=== PATIENT | female | born 1940 | race Caucasian/White ===

== ENCOUNTER 2017-04-30 15:01 | Observation (INO) | payer OTHER ==
[~2017-04-30 15:01] MED LIST: AMLO2.5T PO; HYDR-3516 PO; IBUP1TAB5 PO; LISI-515 PO; METF500T PO
[2017-04-30 17:49] VITALS: BP 119/69; PULSE 47; RESP 16; TEMP 98.5; O2SAT 98
[2017-04-30] MEDS ORDERED: NALOXONE HCL 0.4 MG/ML AMP IV PUSH PRN (18:00)
[2017-04-30] MEDS ORDERED: SODIUM CHLORIDE 0.9% FLUSH 10 ML FLUSH IV FLUSH PRN (18:00)
[2017-04-30] MEDS ORDERED: ALEN1TAB48 PO (18:20)
[2017-04-30] MEDS ORDERED: GALA8TAB PO (18:20)
[2017-04-30] MEDS ORDERED: GABA300C5 PO (18:20)
--- NOTE | 2017-04-30 19:43 | HHI.HP ---
[facility]Staff Admission Diagnosis Diagnoses: History of Present Illness was visiting daughter at work and all of a sudden had abdominal pain pointed to LUQ area and not going away and thus family brought her to hospital now pain is episodic pain is reproducible no nauea. no vomiting no prior pains in previous days now c/o headaches after arriving to ER she was given nitropaste in ER and is still wearing it also c/o left flank pain no hx of kidney stones denies urine burning or pain, but has been urinating frequently and more in quantity no other symptoms Review of Systems Except as stated in HPI: all other systems reviewed are Neg Past Family Social History Past Medical History htn dm cad- s/p coronary angiogram was advised ppm before but pt refused dementia Past Surgical History coronary angiogram appendectomy Allergies: Coded Allergies: No Known Allergies (Unverified Allergy, Unknown, 04/30/17) Family History all her sisters has heart, dm, dementia, osteoporosis her mother of tuberculosis. pt herself was treated with prophylaxis medicine Social History no smoking/ etoh/ drugs Physical Exam Vital Signs Vital Signs Date Time Temp Pulse Resp B/P (MAP) Pulse Ox O2 Delivery O2 Flow Rate FiO2 04/30/17 17:49 98.5 47 16 119/69 (86) 98 Physical Exam GENERAL: This is a well-nourished, well-developed patient, in no apparent distress. SKIN: No rashes, ecchymoses or lesions. Cool and dry. HEAD: Atraumatic. Normocephalic. No temporal or scalp tenderness. EYES: Pupils equal round and reactive. Extraocular motions intact. No scleral icterus. No injection or drainage. ENT: Nose without bleeding, purulent drainage or septal hematoma. Throat without erythema, tonsillar hypertrophy or exudate. Uvula midline. Airway patent. NECK: Trachea midline. No JVD or lymphadenopathy. Supple, nontender, no meningeal signs. CARDIOVASCULAR: Regular rate and rhythm without murmurs, gallops, or rubs. RESPIRATORY: Clear to auscultation. Breath sounds equal bilaterally. No wheezes , rales, or rhonchi. GASTROINTESTINAL: Abdomen soft, non-tender, nondistended. No hepato-splenomegaly , or palpable masses. No guarding. MUSCULOSKELETAL: Extremities without clubbing, cyanosis, or edema. No joint tenderness, effusion, or edema noted. No calf tenderness. Negative Homans sign bilaterally. NEUROLOGICAL: Awake and alert. Cranial nerves II through XII intact. Motor and sensory grossly within normal limits. Five out of 5 muscle strength in all muscle groups. Normal speech. Caprini VTE Risk Assessment Caprini Risk Assessment Model Point Value = 1 Point Value = 2 Point Value = 3 Point Value = 5 Age 41-60 Minor surgery BMI > 25 kg/m2 Swollen legs Varicose veins or History of unexplained or recurrent spontaneous Oral contraceptives or hormone replacement Sepsis (< 1 month) Serious lung disease, including pneumonia (< 1 month) Abnormal pulmonary function Acute myocardial infarction Congestive heart failure (< 1 month) History of inflammatory bowel disease Medical patient at bed rest Age 61-74 Arthroscopic surgery Major open surgery (> 45 min) Laparoscopic surgery (> 45 min) Malignancy Confined to bed (> 72 hours) Immobilizing plaster cast Central venous access Age >= 75 History of VTE Family history of VTE Factor V Leiden Prothrombin [id number] Lupus anticoagulant Anticardiolipin antibodies Elevated serum homocysteine Heparin-induced thrombocytopenia Other congenital or acquired thrombophilia Stroke (< 1 month) Elective arthroplasty Hip, pelvis, or leg fracture Acute spinal cord injury (< 1 month) Prophylaxis Regimen Total Risk Factor Score Risk Level Prophylaxis Regimen 0-1 Low Early ambulation 2 Moderate Order ONE of the following: *Sequential Compression Device (SCD) *Heparin 5000 units SQ BID 3-4 Higher Order ONE of the following medications: *Heparin 5000 units SQ TID *Enoxaparin/Lovenox 40 mg SQ daily (WT < 150 kg, CrCl > 30 mL/min) *Enoxaparin/Lovenox 30 mg SQ daily (WT < 150 kg, CrCl > 10-29 mL/min) *Enoxaparin/Lovenox 30 mg SQ BID (WT < 150 kg, CrCl > 30 mL/min) AND/OR *Sequential Compression Device (SCD) 5 or more Highest Order ONE of the following medications: *Heparin 5000 units SQ TID (Preferred with Epidurals) *Enoxaparin/Lovenox 40 mg SQ daily (WT < 150 kg, CrCl > 30 mL/min) *Enoxaparin/Lovenox 30 mg SQ daily (WT < 150 kg, CrCl > 10-29 mL/min) *Enoxaparin/Lovenox 30 mg SQ BID (WT < 150 kg, CrCl > 30 mL/min) AND *Sequential Compression Device (SCD) Assessment and Plan Assessment and Plan left upper quadrant abdominal pain left flank pain headaches due to ntg htn cad d/c ntg pain control with toradol ct abdomen and pelvis without iv since pt got iv today at [place] abdominal US resume home meds hold fosamax hold metformin dvt prophyalxis with lovenox Binta Addison MD Apr 30, 2017 19:43
[2017-04-30] MEDS ORDERED: KETOROLAC TROMETHAMINE 30 MG/ML (IVP) VIAL IV PUSH PRN (19:45)
[2017-04-30] MEDS ORDERED: DEXT 5%-NACL 0.45% 1000 ML INJ 1,000 ML IV SCH (19:45)
[2017-04-30] MEDS ORDERED: DIATRIZOATE MEGLUM/DIATRIZOATE SOD 9 ML CUP PO ONE (19:52)
[2017-04-30] MEDS: GALANTAMINE HYDROBROMIDE 4 MG TAB PO SCH (20:46)
[2017-04-30] MEDS: SODIUM CHLORIDE 0.9% FLUSH 10 ML FLUSH IV FLUSH SCH (20:54)
[2017-04-30] MEDS ORDERED: GABAPENTIN 300 MG CAP PO SCH (21:00)
--- NOTE | 2017-04-30 21:39 | RADRPT ---
EXAM DATE/TIME: 04/30/2017 20:06 [facility] COMPARISON: No previous studies available for comparison. INDICATIONS : Abdominal pain. MEDICAL HISTORY : Hypertension. Diabetes. Coronary artery disease. SURGICAL HISTORY : Appendectomy. Oophorectomy. Cardiac catheterization. ENCOUNTER: Initial ACUITY: 1 day PAIN SCORE: 1/10 LOCATION: Bilateral upper quadrant MEASUREMENTS: LIVER: 12.0 cm length COMMON DUCT: 5 mm RIGHT KIDNEY: 10.1 x 4.2 x 4.3 cm LEFT KIDNEY: 10.6 x 5.2 x 5.6 cm SPLEEN: 7.4 cm length AORTA: 2.4cm maximal FINDINGS: LIVER: Homogeneous increased echotexture throughout the liver. No focal lesions. Hepatopedal flow is seen in the portal vein. COMMON DUCT: No intraluminal mass or stone visualized. GALLBLADDER: The gallbladder is contracted. No echogenic or shadowing stones. PANCREAS: Not well seen. RIGHT KIDNEY: No hydronephrosis, stone or mass. LEFT KIDNEY: No hydronephrosis, stone or mass. SPLEEN: No focal lesion. AORTA: Non aneurysmal. IVC: Within normal limits. CONCLUSION: 1. Homogeneous increased echotexture in the liver without focal lesion. 2. Contracted gallbladder without shadowing stones. William Mcnulty MD on April 30, 2017 at 21:34 Board Certified Radiologist. This report was verified electronically.
[2017-04-30 22:40] VITALS: BP 120/75; PULSE 55; RESP 20; TEMP 98; O2SAT 98
--- NOTE | 2017-04-30 23:29 | RADRPT ---
EXAM DATE/TIME: 04/30/2017 23:07 [facility] COMPARISON: No previous studies available for comparison. INDICATIONS : Abdomen pain. ORAL CONTRAST: Prescribed oral contrast ingested. RADIATION DOSE: 4.72 CTDIvol (mGy) MEDICAL HISTORY : Cardiovascular disease. Hypertension. SURGICAL HISTORY : Appendectomy. ENCOUNTER: Initial ACUITY: 1 day PAIN SCALE: 7/10 LOCATION: abdomen TECHNIQUE: Volumetric scanning of the abdomen and pelvis was performed. Using automated exposure control and ad justment of the mA and/or kV according to patient size, radiation dose was kept as low as reasonably achievable to obtain optimal diagnostic quality images. DICOM format image data is available electro nically for review and comparison. FINDINGS: LOWER LUNGS: The visualized lower lungs are clear. LIVER: Homogeneous density without lesion for noncontrast technique. There is no dilation of the biliary tr ee. No calcified gallstones. SPLEEN: Normal size without lesion. PANCREAS: Within normal limits. KIDNEYS: Normal in size and shape. There is no mass, stone, or hydronephrosis. ADRENAL GLANDS: Within normal limits. VASCULAR: There is no aortic aneurysm. BOWEL/MESENTERY: No dilated loops of small or large bowel. Oral contrast passes through to the splenic flexure. ABDOMINAL WALL: Within normal limits. RETROPERITONEUM: There is no lymphadenopathy. BLADDER: Mildly distended with smooth margins. REPRODUCTIVE: Anteverted uterus. No evidence of free fluid. INGUINAL: There is no lymphadenopathy or hernia. MUSCULOSKELETAL: Within normal limits for patient age. CONCLUSION: 1. Negative noncontrast CT abdomen/pelvis. William Mcnulty MD on April 30, 2017 at 23:24 Board Certified Radiologist. This report was verified electronically.
[2017-05-01 00:13] VITALS: BP 147/71; PULSE 60; RESP 18; TEMP 98; O2SAT 95
[2017-05-01 04:07] VITALS: BP 162/76; PULSE 50; RESP 18; TEMP 97.7; O2SAT 98
[2017-05-01 05:28] LABS: AUTOMATED NEUTROPHIL # 3.6 TH/MM3 (1.8-7.7); BASOPHIL % 0.6 % (0.0-2.0); EOSINOPHIL # 0.2 TH/MM3 (0-0.4); EOSINOPHIL % 2.4 % (0.0-4.0); HEMATOCRIT 35.1 % (35.0-46.0); HEMO FLAGS DIFF FINAL; LYMPH % 36.7 % (9.0-44.0); LYMPHOCYTE # 2.5 TH/MM3 (1.0-4.8); MEAN CELL VOLUME 87.5 FL (80.0-100.0); MEAN CORPUSCULAR HEMOGLOBIN 29.8 PG (27.0-34.0); MEAN CORPUSCULAR HGB CONC 34.1 % (32.0-36.0); MONO % 7.3 % (0.0-8.0); PLATELET COUNT 250 TH/MM3 (150-450); RED BLOOD COUNT 4.01 MIL/MM3 (4.00-5.30); RED CELL DISTRIBUTION WIDTH 13.3 % (11.6-17.2); WHITE BLOOD COUNT 6.7 TH/MM3 (4.0-11.0)
[2017-05-01 05:55] LABS: BICARBONATE 27.7 MEQ/L (21.0-32.0); POTASSIUM 3.8 MEQ/L (3.5-5.1)
[2017-05-01 08:03] VITALS: PULSE 47
[2017-05-01 08:17] VITALS: BP 159/72; PULSE 50; RESP 18; TEMP 97.8; O2SAT 96
[2017-05-01] MEDS: SODIUM CHLORIDE 0.9% FLUSH 10 ML FLUSH IV FLUSH SCH (08:41)
[2017-05-01] MEDS: GALANTAMINE HYDROBROMIDE 4 MG TAB PO SCH (08:41)
[2017-05-01] MEDS ORDERED: LISINOPRIL 20 MG TAB PO SCH (09:00)
[2017-05-01] MEDS ORDERED: amLODIPine BESYLATE 5 MG TAB PO SCH (09:00)
[2017-05-01] MEDS ORDERED: DEXTROSE 50% IN WATER 50 ML VIAL(D50) IV PUSH PRN (11:30)
[2017-05-01] MEDS ORDERED: GLUCAGON 1 MG/ML VIAL OTHER PRN (11:30)
--- NOTE | 2017-05-01 11:56 | HHI.PR ---
Subjective Remarks Follow-up on patient with chest pain. Patient seen and examined. Daughters at the bedside. Offered to use hospitals translation service however patient declined and requested to use daughter as commercial front load driver. Patient is currently chest pain-free. She does have a family history of coronary artery disease having had a sister with previous CABG. She states she developed sudden onset of sharp left-sided chest pain underneath the left breast while at rest without any associated symptoms. She is unsure if it worsened with activity but does state it ways exacerbated with deep inspiration. She did get relief after administration of aspirin and nitroglycerin in the ED at [place]. She is currently chest pain-free. She has no other acute medical complaints at this time. She did have a heart catheterization 4 years ago with patent arteries but is unable to recall if her symptoms yesterday were the same as 4 yrs ago leading to the catheterization. She states her diabetes is well controlled at home with BS in the 120-130s. Objective Vitals Vital Signs Date Time Temp Pulse Resp B/P (MAP) Pulse Ox O2 Delivery O2 Flow Rate FiO2 05/01/17 08:17 97.8 50 18 159/72 (101) 96 05/01/17 08:03 47 05/01/17 04:07 97.7 50 18 162/76 (104) 98 05/01/17 00:13 98.0 60 18 147/71 (96) 95 04/30/17 22:40 98.0 55 20 120/75 (90) 98 04/30/17 21:00 18 04/30/17 17:49 98.5 47 16 119/69 (86) 98 I/O 04/30/17 04/30/17 04/30/17 05/01/17 05/01/17 05/01/17 07:00 15:00 23:00 07:00 15:00 23:00 Intake Total 400 ml Balance 400 ml Intake Oral 400 ml # Voids 3 Result Diagram: 05/01/17 0503 05/01/17 0503 Imaging Last Impressions Abdomen/Pelvis CT 04/30/17 0000 Signed Impressions: Service Date/Time: Sunday, April 30, 2017 23:07 - CONCLUSION: 1. Negative noncontrast CT abdomen/pelvis. William Mcnulty MD Abdomen Ultrasound 04/30/17 0000 Signed Impressions: Service Date/Time: Sunday, April 30, 2017 20:06 - CONCLUSION: 1. Homogeneous increased echotexture in the liver without focal lesion. 2. Contracted gallbladder without shadowing stones. William Mcnulty MD Objective Remarks GENERAL: Well-nourished, well-developed elderly Wolof speaking female patient in NAD. Awake and alert, daughter at the bedside. Patient appears comfortable. SKIN: Warm and dry. No rash. HEAD: Normocephalic. Atraumatic. EYES: EOMI. No scleral icterus. No injection or drainage. ENT: No nasal bleeding or discharge. Mucous membranes pink and moist. NECK: Supple. Trachea midline. CARDIOVASCULAR: Regular rate and rhythm. S1, S2 noted. No murmur appreciated. RESPIRATORY: Nonlabored. Clear to auscultation. Breath sounds equal bilaterally. GASTROINTESTINAL: Abdomen soft, non-tender, nondistended. Normoactive bowel sounds x4. MUSCULOSKELETAL: No obvious deformities. Extremities without clubbing, cyanosis , or edema. Chest pain not reproducible. NEUROLOGICAL: Awake and alert. Able to move all extremities spontaneously. No focal neurologic findings appreciated. Normal speech. PSYCHIATRIC: Appropriate mood and affect; insight and judgment normal. Medications and IVs Current Medications Medications (Trade) Dose Ordered Sig/Yosef Route Start Time Stop Time Status Last Admin (NS Flush) 2 ml UNSCH PRN IV FLUSH 04/30/17 18:00 (NS Flush) 2 ml BID IV FLUSH 04/30/17 21:00 (Narcan Inj) 0.4 mg UNSCH PRN IV PUSH 04/30/17 18:00 (Toradol Inj) 30 mg Q6H PRN IV PUSH 04/30/17 19:45 05/04/17 19:44 04/30/17 20:28 (Norvasc) 2.5 mg DAILY PO 05/01/17 09:00 05/01/17 08:40 (Neurontin) 300 mg HS PO 04/30/17 21:00 04/30/17 20:46 (Razadyne) 8 mg BID PO 04/30/17 21:00 05/01/17 08:41 (Prinivil) 20 mg DAILY PO 05/01/17 09:00 05/01/17 08:41 Dextrose/Sodium Chloride 1,000 ml @ 42 mls/hr [id number] IV 04/30/17 19:45 04/30/17 19:45 (D50w (Vial) Inj) 50 ml UNSCH PRN IV PUSH 05/01/17 11:30 (Glucagon Inj) 1 mg UNSCH PRN OTHER 05/01/17 11:30 (NovoLOG SUPPLEMENTAL SCALE) 1 ACHS SLIDING SCALE SQ 05/01/17 12:00 A/P Assessment and Plan Chest pain, r/o ACS - Patient is currently chest pain-free - US and CT abdominal studies unremarkable, images personally reviewed - Troponin 0.06, 0.08, 0.07 - Consult cardiology, appreciate recommendation. She is scheduled for myocardial perfusion scan. - Nitroglycerin when necessary chest pain - LDL 130. Patient started on Lipitor. - ASA 81mg daily - supplemental oxygen as needed Hypertension - controlled - Continue patient on home dose of lisinopril 20 mg daily and Norvasc 2.5 mg daily Bradycardia - asymptomatic - stable - continue to monitor DM - Metformin on hold - ISS - accucheck - HgbA1c 6.7 Diabetic neuropathy - continue patient on home dose of gabapentin 300 mg at night Dementia - Continue patient on home dose of Galantamine 8mg BID DVT prophylaxis - Bilateral SCD/FE hose MPS revealing EF >70%, low risk study. Patient cleared for discharge from cardiology standpoint. Discharge patient to home Condition on discharge: Improved Heart healthy diabetic diet as tolerated Ad Allyssa activity Rx written: Lipitor 10mg daily, Aspirin 81mg daily Follow-up with primary care physician and supervisor treating and pumping Vivi Cordon May 01, 2017 11:56
[2017-05-01] MEDS ORDERED: INSULIN ASPART SUPPLEMENTAL SCALE SQ SCH (12:00)
[2017-05-01 12:09] VITALS: BP 147/72; PULSE 50; RESP 18; TEMP 97.9; O2SAT 97
[2017-05-01 13:05] VITALS: PULSE 53
[2017-05-01 13:16] LABS: HDL CHOLESTEROL 51.7 MG/DL (40.0-60.0); LDL CHOLESTEROL 130 MG/DL (0-99)
[2017-05-01 14:00] LABS: HEMOGLOBIN A1a 1.7 %; HEMOGLOBIN A1b 1.8 %; HEMOGLOBIN Ao 82.7 %; HEMOGLOBIN LA1C 2.9 %; HEMOGLOBIN P3 3.8 %
[2017-05-01] MEDS ORDERED: REGADENOSON INJ 0.4 MG/5 ML SYR ONE (15:21)
--- NOTE | 2017-05-01 16:32 | RADRPT ---
EXAM DATE/TIME: 05/01/2017 15:15 [facility] COMPARISON: No previous studies available for comparison. INDICATIONS : Chest pain. Angina. DOSE: 25.4 mCi Tc99m Myoview at stress. 8.5 mCi Tc99m Myoview at rest. 0.4 mg Lexiscan STRESS SYMPTOMS: Shortness of breath, chest pressure, stomach pressure. EJECTION FRACTION: > 70% MEDICAL HISTORY : Hypertension. SURGICAL HISTORY : Cardiac cath. ENCOUNTER: Initial ACUITY: 1 day PAIN SCALE: 3/10 LOCATION: Bilateral chest TECHNIQUE: The patient underwent pharmacologic stress with infusion of prescribed dose. Continuous ECG tracing was monitored during stress. Gated SPECT imaging was performed after stress and conventional SPECT i maging was performed at rest. The examination was performed on a SPECT/CT scanner, both attenuation and non-corrected datasets were reviewed. FINDINGS: DISTRIBUTION: The maximum perfused segment at stress is in the <anterolateral> wall. PERFUSION STUDY: The pattern of perfusion at stress is within normal limits. GATED STUDY: There is intact wall motion and thickening without hypokinetic or dyskinetic segments. CONCLUSION: Normal examination. RISK CATEGORY: Low (<1% Annual Mortality Rate) Rashard Smyth MD on May 01, 2017 at 16:29 Board Certified Radiologist. This report was verified electronically.
[2017-05-01] MEDS ORDERED: ECASA81 PO (17:52)
[2017-05-01] MEDS ORDERED: LIPI10TA PO (17:52)
--- NOTE | 2017-05-01 18:01 | HHI.DCPOC ---
Discharge Care Plan Diagnosis: (1) Chest pain (2) Diabetes (3) Dementia (4) Dyslipidemia Goals to Promote Your Health * To prevent worsening of your condition and complications * To maintain your health at the optimal level Directions to Meet Your Goals You been started on a statin therapy for elevated cholesterol level. You will need to have your liver functions tested in 6-8 weeks after initiation of statin therapy. These follow-up with primary care physician and director meetings as outpatient. Take your medications as prescribed Follow your dietary instruction Follow activity as directed Keep your appointments as scheduled Take your immunizations and boosters as scheduled If your symptoms worsen call your PCP, if no PCP go to Urgent Care Center or Emergency Room Smoking is Dangerous to Your Health. Avoid second hand smoke Call the 24-hour hour crisis hotline for domestic abuse at Vivi Cordon May 01, 2017 18:01
--- NOTE | 2017-05-01 19:48 | MB ---
cc: ROWDY SOTO MD DATE OF CONSULTATION 05/01/17 REASON FOR CONSULTATION Atypical chest pain with elevated troponin HISTORY OF PRESENT ILLNESS The patient is a pleasant 76 year old woman with no prior cardiac disease who tells me that she had a heart catheterization about four years ago which was negative. She denies any current symptoms but presented with left lateral chest discomfort which has now resolved, no shortness breath, lightheadedness, dizziness. PAST MEDICAL HISTORY 1. Hypertension 2. Diabetes. MEDICATIONS Current, 1. Amlodipine 2.5 mg day. 2. Lisinopril 20 mg daily. ALLERGIES NO KNOWN DRUG ALLERGIES. PHYSICAL EXAMINATION VITAL SIGNS: Afebrile, pulse 53, respiratory rate 18, BP 147/72, satting 97%. GENERAL: Pleasant well-appearing woman in no distress. NECK: No JVD. LUNGS: Clear to auscultation bilaterally. CARDIOVASCULAR: Regular rate and rhythm. No murmurs appreciated. ABDOMEN: Benign. EXTREMITIES: No edema. LABORATORY DATA Sodium 138, potassium 2.8, chloride 104, bicarb 27.7, BUN 14, creatinine 0.81, glucose 240. Troponin 0.06, 0.08. LDL is 130, White count 6.7, hematocrit 35.1, platelets 250. CARDIOLOGY STUDIES EKG shows sinus bradycardia with PACs without any significant ST or T-wave changes. IMPRESSION Atypical chest pain. The patient's chest pain is very low in her left side more abdominal than cardiac. Her troponins are in the nonspecific range. I will have her undergo a nuclear stress test. If normal, she could be discharged from a cardiac standpoint with internal medicine to finish working up her abdominal pain. Thank you again for the opportunity to participate in this patient's care. MD TONNY Fox/ /1:47 PM /7:25 PM
[2017-05-02] MEDS ORDERED: ATORVASTATIN 10 MG TAB PO SCH (09:00)
[2017-05-02] MEDS ORDERED: ASPIRIN EC 81 MG TABEC PO SCH (09:00)
--- NOTE | 2017-05-02 23:21 | EKG ---
Date Performed: 05/01/2017 Time Performed: 14:04:02 PTAGE: 76 years EKG: SINUS BRADYCARDIA WITH OCCASIONAL SUPRAVENTRICULAR PREMATURE COMPLEXES BORDERLINE ECG Carlitos red to the PREVIOUS TRACING from 04/30/17, no significant change DOCTOR: Gene Santana Interpretating Date/Time 05/02/2017 23:20:42
== END 2017-05-01 19:22 | disposition home or self-care (01) ==
LOC: NEDDLT 17:40 → NEPGCP 17:45
PROVIDERS: ADMIT Family Medicine; ATTEND Family Medicine
DX: R10.12 Left upper quadrant pain (principal); R51 Headache; R07.89 Other chest pain; R74.8 Abnormal levels of other serum enzymes; R00.1 Bradycardia, unspecified; I25.119 Atherosclerotic heart disease of native coronary artery with unspecified angina pectoris; I10 Essential (primary) hypertension; E78.5 Hyperlipidemia, unspecified; E11.40 Type 2 diabetes mellitus with diabetic neuropathy, unspecified; F03.90 Unspecified dementia, unspecified severity, without behavioral disturbance, psychotic disturbance, mood disturbance, and anxiety; Z79.899 Other long term (current) drug therapy; Z82.49 Family history of ischemic heart disease and other diseases of the circulatory system
CPT/HCPCS: 71020; 71275; 74176; 76700; 78452; 80048; 80061; 82550; 82552; 82948; 83036; 83690; 83735; 83880; 84443; 84484; 85025; 85379; 85610; 85730; 93005; 93017; 96361; 96374; 99285; A9502; G0378; J1885; J2785; Q9963; Q9967